=== PATIENT | female | born 1940 | race Caucasian/White ===

== ENCOUNTER 2017-07-04 23:37 | Observation (INO) | payer MEDICARE, BC ==
[~2017-07-04] VITALS: Ht 165.1 cm; Wt 65.7 kg
--- NOTE | ~2017-07-04 | HP ---
Unit #: [id number] #: [id number] Patient: EUNICE CARABALLO [id number] [address] [place], [place] [address] [id number] I MR#: [id number] NAME: EUNICE CARABALLO. ROOM: 553 Age: 77 Sex: F Admission Date: 07/05/2017 : 1940 Attending Physician: Vimal Sanford M.D. Primary Care Physician: Mian Abreu Jr., M.D. HISTORY AND PHYSICAL HISTORY OF PRESENT ILLNESS This is a 77-year-old white female with a history of hypertension, hyperlipidemia, and diabetes. She had a normal stress test back in 2013 and a normal echo. She has non-Hodgkin's lymphoma that is in remission since 2014. She sees Dr. Terrazas. She is a nonsmoker. She presented to the emergency room after she had an episode last evening where she felt her heart racing and palpating and had substernal chest pressure, lightheadedness, and shortness of breath. She has a blood pressure machine at home and she took and the readings were 200/100. She said that with her symptoms and the blood pressure high, she came to the emergency room for further evaluation. She denies that the discomfort radiated up into her neck, jaw, or bilateral shoulders, arms, or elbows. She did say she has been having spells of dizziness when she gets up and ambulates. She is very active for her age. She does all of her housework and even mows her grass with a push mower. She denies any near syncope or syncopal episodes. She has not had any recent cough, fever, or chills. Denies any nausea, vomiting, or abdominal pain. She describes the pressure in her chest as just being a heavy pushing pressure, and she has not had that recently. In the emergency room, patient's blood pressure was found to be 154/96, heart rate was 105, respirations 18, temperature 97.5, and O2 saturation was 99% on room air. Her chest x-ray did not show anything acute. EKG showed sinus rhythm. She had some nonspecific changes in her inferior leads. Her cardiac enzymes have remained negative. Her potassium was down to 3.3 and that was supplemented with 40 mEq of KCl. Creatinine 0.7. Patient was given an aspirin, in addition to the supplemental potassium and a dose of IV Ativan. She will be admitted for further evaluation and management. PAST MEDICAL HISTORY 1. In 2013, a 2D echo, LVEF of greater than 55%, trace myocardial infarction and tricuspid regurgitation. 2. In 2013, Lexiscan Cardiolite stress test, no ischemia, normal wall motion, EF of 65%. 3. Hypertension. 4. Diabetes mellitus type 2. 5. Hyperlipidemia. 6. Non-Hodgkin's lymphoma in remission since 2014, sees Dr. Terrazas. 7. Nonsmoker. PAST SURGICAL HISTORY 1. Thyroid nodule removed but was benign. 2. Breast biopsy but benign. Unit #: [id number] #: [id number] Patient: EUNICE CARABALLO HOME MEDICATIONS 1. Glucophage 500 mg p.o. twice daily. 2. Lisinopril 40 mg p.o. daily. 3. Norvasc 10 mg p.o. daily. ALLERGIES No known drug allergies. SOCIAL HISTORY Patient lives with her spouse. She is very active for her age. She does all of her chores in the home and also mows the grass with a push mower. She has been a lifelong nonsmoker. No alcohol or illicit drug abuse. FAMILY HISTORY Her mother had a stroke at the age of 50 but did not until she was 83. Her father had some type of heart disease but at an older age. Her siblings are in generally well health. REVIEW OF SYSTEMS CONSTITUTIONAL: Denies fever or chills. No recent weight gain or weight loss. HEENT: Denies headache. Has occasional dizziness but no presyncope or syncope. Denies visual or hearing changes. NECK: No lymphadenopathy or thyromegaly. No difficulty swallowing. CARDIOVASCULAR: Chest pressure present. Palpitations present. CHEST: Denies paroxysmal nocturnal dyspnea or orthopnea. GASTROINTESTINAL: Denies nausea, vomiting, or diarrhea. Denies abdominal pain. NEUROLOGICAL: No focal weakness. PHYSICAL EXAMINATION GENERAL: On exam, Mrs. Caraballo is a 77-year-old white female in no acute respiratory distress. VITAL SIGNS: Blood pressure currently 156/73, heart rate 74, respirations 18, temperature 98, O2 saturations 95% on room air. NECK: Trachea midline. No thyromegaly or lymphadenopathy. Normal carotid upstrokes. No jugular venous distention. HEART: S1 and S2, regular rate and rhythm. No clicks, murmurs, or rubs. LUNGS: Bilaterally clear throughout. No wheezes, rales, or rhonchi. ABDOMEN: Obese, soft, nontender. EXTREMITIES: Pedal pulses are palpable. With 1+ pedal edema. DIAGNOSTIC STUDIES LABORATORY: Glucose is 256, BUN 14, creatinine 0.7, eGFR is 83, sodium 140, potassium 3.3, chloride 106, CO2 is 27, calcium is 9, total protein 7.1, albumin 4.1, bilirubin total 0.2, AST 17, ALT 20, alkaline phosphatase is 52. BNP is 53. TSH is 2.42. WBC 9.8, hemoglobin 13.3, hematocrit 40.5, and platelets 243,000. Initial cardiac enzymes: CK-MB is 1.6 and troponin less than 0.05, CK-MB is 1.2 and troponin less than 0.05, and this morning her troponin is less than 0.03. Urinalysis shows trace leukocyte esterase, 250 glucose, 0.2 urobilinogen, otherwise unremarkable. IMAGING: Chest x-ray, preliminary report, does not show anything acute. CARDIOLOGY: EKG shows normal sinus rhythm with ventricular rate 69 beats per minute, left ventricular hypertrophy, early repolarization, Unit #: [id number] #: [id number] Patient: EUNICE CARABALLO nonspecific ST and T wave abnormalities in inferior leads. IMPRESSION 1. Chest pain, questionable etiology. 2. Palpitations. 3. Dizziness. 4. Hypertension. 5. Diabetes mellitus. 6. Hyperlipidemia. 7. History of non-Hodgkin's lymphoma that is in remission. 8. Nonsmoker. PLAN 1. So far, cardiac enzymes are negative. EKG shows some nonspecific changes. Her symptoms may be more palpitations causing her symptoms, so she is on telemetry. So far, there are no arrhythmias noted. Patient has been started on a low-dose beta mary. Will continue to monitor. Decrease down her dose of lisinopril to avoid any hypotension. 2. Do orthostatic vital signs to check for any orthostasis. 3. Her TSH is normal. 4. Obtain a fasting lipid profile and evaluate. 5. Patient states she was intolerant of statins in the past. 6. Obtain a 2D echo to reevaluate her LV function and valves. 7. Will schedule for a stress test in the morning if her cardiac enzymes remain negative to further evaluate for ischemic heart disease. 8. SCDs for DVT prophylaxis while in bed. 9. Continue on aspirin along with a beta mary and nitrate. 10. Further recommendations pending per Dr. Garcia. Dictated by Zuri Becerril A.P.R.N. for John Garcia M.D. LEO/carline TD: 07/05/2017 16:20 JOB #: [id number] HISTORY AND PHYSICAL Page 1 of 1 X Zuri Becerril APRN X HISTORY AND PHYSICAL
--- NOTE | ~2017-07-04 | EKG ---
PATIENT: EUNICE CARABALLO UNIT #: [id number] Ventricular Rate: 68 BPM Atrial Rate: 68 BPM P-R Interval: 148 ms QRS Duration: 78 ms Q-T Interval: 422 ms QTC Calculation(Bezet): 448 ms P [place]: 25 degrees Calculated R [place]: 14 degrees Calculated T [place]: 32 degrees Diagnosis Line: Normal sinus rhythm Diagnosis Line: Normal ECG Diagnosis Line: When compared with ECG of 05-JUL-2017 16:30, Diagnosis Line: (unconfirmed) Diagnosis Line: No significant change was found Diagnosis Line: Confirmed by CRISTI ESTRELLA MD ([id number]) on 07/08/2017 Diagnosis Line: 4:47:28 PM INTERPRETING MD: DELORES MONTEIRO
--- NOTE | ~2017-07-04 | ST ---
Unit #: [id number] #: [id number] Patient: EUNICE CARABALLO [id number] [address] [address] [id number] I MR#: [id number] NAME: EUNICE CARABALLO. : 1940 SEX: F STUDY DATE/TIME: UNIT: C5B ROOM: 553 STUDY DESCRIPTION: Stress Test Attending Physician: Vimal Sanford M.D. Primary Care Physician: Mina Abreu Jr., M.D. CARDIOLOGY REPORT EXAM Lexiscan Cardiolite Stress Test DESCRIPTION Baseline EKG - normal sinus rhythm with ventricular rate 79 beats per minute, left atrial abnormality, nondiagnostic Q waves in inferior leads, slow R wave progression. Lexiscan is a four minute test with Lexiscan being injected within the first minute followed by Cardiolite. EKG during the test showed some T wave inversion in inferior leads of frequent premature ventricular complex during stress and recovery portion. Patient had no complaints of chest pain, palpitations or dizziness. Had increased shortness of breath and fatigueness which resolved in recovery phase. Maximum heart rate response was 115 beats per minute with a maximum blood pressure response of 175/85 mmHg. Cardiolite was injected after Lexiscan within the first minute of the test. Radionuclide test pending. Please correlate with nuclear images. Dictated by... Zuri Becerril A.P.R.N. for Jerad Juan/erna TD: 07/06/2017 12:22 JOB #: [id number] Unit #: [id number] #: [id number] Patient: EUNICE CARABALLO CARDIOLOGY REPORT Page 1 of 1 X Zuri Becerril APRN CARDIOLOGY REPORT
--- NOTE | ~2017-07-04 | CR72 ---
[facility] A Service of [facility] RADIOLOGY TEXT RESULTS PATIENT: EUNICE CARABALLO LOCATION: [place] [address] : [birth year] UNIT #: [id number] AGE: [address]: Vimal Sanford MD SEX: F ORDER DR: [id number] [facility] [address] [place], [place] [address] [id number] I MR#: [id number] Acc #: [id number] NAME: EUNICE CARABALLO : 1940 SEX: F STUDY DATE/TIME: 07/05/2017 1:11 UNIT: [facility] ROOM: [facility] STUDY DESCRIPTION: CR Chest Single View Portable Attending Physician: Vimal Sanford M.D. Ordering Physician: Iam Howard M.D. Primary Care Physician: Mina Abreu Jr., M.D. MEDICAL IMAGING REPORT This report is preliminary unless electronic signature is present EXAM Portable chest INDICATIONS Heart palpitations today PROCEDURE Frontal view chest COMPARISON 09/14/2014 FINDINGS Moderate cardiomegaly. No dense consolidation. No pleural fluid or pneumothorax. IMPRESSION Moderate cardiomegaly. No active process. Dictated by... Raymundo Sahu M.D. THIS IS AN ELECTRONICALLY VERIFIED REPORT Raymundo Sahu M.D. at 07/06/2017 10:04 PM EED/to TD: 07/05/2017 13:56 JOB #: [id number] MEDICAL IMAGING REPORT Page 1 of 1 COPY
--- NOTE | ~2017-07-04 | EKG ---
PATIENT: EUNICE CARABALLO UNIT #: [id number] Ventricular Rate: 62 BPM Atrial Rate: 62 BPM P-R Interval: 168 ms QRS Duration: 78 ms Q-T Interval: 438 ms QTC Calculation(Bezet): 444 ms P [place]: 33 degrees Calculated R [place]: 1 degrees Calculated T [place]: 28 degrees Diagnosis Line: Normal sinus rhythm Diagnosis Line: Possible Inferior infarct , age undetermined Diagnosis Line: Abnormal ECG Diagnosis Line: When compared with ECG of 05-JUL-2017 07:17, Diagnosis Line: (unconfirmed) Diagnosis Line: No significant change was found Diagnosis Line: Confirmed by ELVA MEJIA MD ([id number]) on 07/06/2017 Diagnosis Line: 2:03:22 PM INTERPRETING MD: JACKIE MONTEIRO
--- NOTE | ~2017-07-04 | EKG ---
PATIENT: EUNICE CARABALLO UNIT #: [id number] Ventricular Rate: 78 BPM Atrial Rate: 78 BPM P-R Interval: 162 ms QRS Duration: 80 ms Q-T Interval: 394 ms QTC Calculation(Bezet): 449 ms P [place]: 44 degrees Calculated R [place]: 47 degrees Calculated T [place]: 46 degrees Diagnosis Line: Sinus rhythm with occasional Premature ventricular Diagnosis Line: complexes Diagnosis Line: Nonspecific T wave abnormality Diagnosis Line: Abnormal ECG Diagnosis Line: When compared with ECG of 05-JUL-2017 00:16, Diagnosis Line: (unconfirmed) Diagnosis Line: QRS axis Shifted left Diagnosis Line: Confirmed by ELVA MEJIA MD ([id number]) on 07/06/2017 Diagnosis Line: 2:00:56 PM INTERPRETING MD: JACKIE MONTEIRO
--- NOTE | ~2017-07-04 | TH ---
Unit #: [id number] #: [id number] Patient: EUNICE CARABALLO 113[address] [facility]. [address] [address] [id number] I MR#: [id number] NAME: EUNICE CARABALLO. : 1940 SEX: F STUDY DATE/TIME: UNIT: C5B ROOM: 553 STUDY DESCRIPTION: Nuclear Study Attending Physician: Vimal Sanford M.D. Primary Care Physician: Mina Abreu Jr., M.D. CARDIOLOGY REPORT EXAM Lexiscan Cardiolite Stress Test - Nuclear Portion PROCEDURE Using technetium 99m labeled Cardiolite, rest and stress SPECT images were obtained. Multiple SPECT images were obtained in various views including horizontal and vertical long axis and short axis views of the left ventricle. Images were obtained by gated SPECT method. Patient was administered 11.22 mCi of Cardiolite at rest. Patient was administered 33.4 mCi of Cardiolite after Lexiscan infusion was completed. On the stress images there is normal perfusion noted. The rest images show normal perfusion. Comparing rest and stress images, there is no stress-induced ischemia noted. The left ventricular ejection fraction is calculated to be 85%. There is no focal wall motion abnormality seen. CONCLUSION 1. No stress-induced ischemia noted. 2. The left ventricular ejection fraction is calculated to be 85%. 3. There is no focal wall motion abnormality seen. 4. The left ventricular size is small. 5. Normal Lexiscan Cardiolite stress test. Dictated by... Jerad Juan TD: 07/06/2017 13:26 JOB #: [id number] Unit #: [id number] #: [id number] Patient: EUNICE CARABALLO CARDIOLOGY REPORT Page 1 of 1 X Faina Ceja MD <ELECTRONICALLY SIGNED> 07/23/17 1524 CARDIOLOGY REPORT
--- NOTE | ~2017-07-04 | EKG ---
PATIENT: EUNICE CARABALLO UNIT #: [id number] Ventricular Rate: 69 BPM Atrial Rate: 69 BPM P-R Interval: 148 ms QRS Duration: 80 ms Q-T Interval: 402 ms QTC Calculation(Bezet): 430 ms P [place]: 25 degrees Calculated R [place]: 39 degrees Calculated T [place]: 36 degrees Diagnosis Line: Normal sinus rhythm Diagnosis Line: Voltage criteria for left ventricular hypertrophy Diagnosis Line: Otherwise normal ECG Diagnosis Line: When compared with ECG of 05-JUL-2017 00:17, Diagnosis Line: (unconfirmed) Diagnosis Line: Premature ventricular complexes are no longer Diagnosis Line: Present Diagnosis Line: Nonspecific T wave abnormality, improved in Diagnosis Line: Anterior leads Diagnosis Line: Confirmed by ELVA MEJIA MD ([id number]) on 07/06/2017 Diagnosis Line: 2:01:33 PM INTERPRETING MD: JACKIE MONTEIRO
[~2017-07-04 23:37] MED LIST: HYDROCHLOROTH12.5 M1 PO; LISINOPRIL; METFORMIN PO; MEVACOR; NORVASC; PEPCID
[2017-07-05 00:19] LABS: BASOPHIL# 0.1 X10e3 (0-0.3); BASOPHIL% 1.3 % (0-2.5); DIFF IND NO; EOSINOPHIL# 0.2 X10e3 (0-0.7); EOSINOPHIL% 2.1 % (0.0-7.0); HEMATOCRIT 40.5 % (35.0-45.0); HEMOGLOBIN 13.3 gm/dL (12.0-16.0); LYMPHOCYTE# 1.5 X10e3 (1.0-3.5); LYMPHOCYTE% 15.4 % (17.0-45.0); MEAN CELL VOLUME 84.4 FL (83-96); MEAN CORPUSCULAR HEMOGLOBIN 27.8 PG (28-34); MEAN PLATELET VOLUME 8.1 FL (6.5-11.5); MONOCYTE# 0.9 X10e3 (0-1.0); MONOCYTE% 9.3 % (3.0-12.0); NEUTROPHIL# 7.1 X10e3 (1.5-7.1); NEUTROPHIL% 71.9 % (40-75); PLATELET COUNT 243 X10e3 (140-420); RED CELL DISTRIBUTION WIDTH 14.3 % (11.0-15.5); WHITE BLOOD COUNT 9.8 X10e3 (4.0-10.5)
[2017-07-05 00:25] LABS: POC - CKMB 1.6 ng/mL (0.0-7.9); POC - TROPONIN <0.05 ng/mL (<=0.05)
[2017-07-05 00:45] LABS: ALBUMIN SERUM 4.1 g/dL (3.5-5.0); BILIRUBIN, DIRECT 0.1 mg/dL (0.0-0.2); BILIRUBIN,INDIRECT 0.1 mg/dL (0.0-0.9); BILIRUBIN,TOTAL 0.2 mg/dL (0.2-2.0); CREATININE SERUM 0.7 mg/dL (0.6-1.4); POTASSIUM 3.3 mmol/L (3.5-5.1); PROTEIN TOTAL SERUM 7.1 g/dL (6.0-8.3)
[2017-07-05 00:55] LABS: URINE SOURCE CLEAN CATCH
[2017-07-05 00:59] LABS: URINE APPEARANCE CLEAR; URINE BILIRUBIN NEG (NEG); URINE BLOOD TRACE (NEG); URINE COLOR YELLOW; URINE GLUCOSE 250 MG/DL (NEG); URINE KETONE NEG (NEG); URINE LEUKOCYTE ESTERASE TRACE (NEG); URINE NITRATE NEG (NEG); URINE PROTEIN NEG (NEG); URINE SPECIFIC GRAVITY 1.005 (1.003-1.035); URINE UROBILINOGEN 0.2 MG/DL (NEG)
[2017-07-05 01:02] LABS: CULTURE INDICATED? NO; U HYALINE CASTS AUWI 0-2 /[LPF]; URBCS1 AUWI 0-2 /[HPF] (0-2); URINE BACTERIA AUWI NEG (NEGATIVE); URINE SQUAMOUS EPITHELIAL CELL NONE SEEN /[HPF]
[2017-07-05 02:02] LABS: POC - CKMB 1.2 ng/mL (0.0-7.9); POC - TROPONIN <0.05 ng/mL (<=0.05)
[2017-07-06 05:47] LABS: HEMATOCRIT 40.6 % (35.0-45.0); HEMOGLOBIN 13.5 gm/dL (12.0-16.0); MEAN CELL VOLUME 83.5 FL (83-96); MEAN CORPUSCULAR HEMOGLOBIN 27.7 PG (28-34); MEAN CORPUSCULAR HGB CONC 33.1 g/dL (30-36); MEAN PLATELET VOLUME 8.2 FL (6.5-11.5); RED BLOOD COUNT 4.86 X10e (3.90-5.30); RED CELL DISTRIBUTION WIDTH 14.6 % (11.0-15.5); WHITE BLOOD COUNT 9.3 X10e3 (4.0-10.5)
[2017-07-06 07:02] LABS: BUN/CREATININE RATIO 27.5; CALCIUM SERUM 9.6 mg/dL (8.4-10.2); CREATININE SERUM 0.8 mg/dL (0.6-1.4); GLOM FILT RATE Estimated 70.7 mL/min (>60)
[2017-07-06] MEDS ORDERED: NORVASC10 MG PO (14:08)
[2017-07-06] MEDS ORDERED: METOPROLOL TAR25 MG PO (14:09)
[2017-07-06] MEDS ORDERED: ASPIRIN81 MG PO (14:09)
[2017-07-06] MEDS ORDERED: ALDACTONE25 MG PO (14:10)
[2017-07-06] MEDS ORDERED: LISINOPRIL10 MG PO (14:12)
== END 2017-07-06 15:31 | disposition home or self-care (01) ==
LOC: CED 23:37 → CEDOF 07-05 02:10 → CED 07-05 02:20 → CEDOF 07-05 07:45 → C5B 07-05 07:45
PROVIDERS: Emergency Medicine; Nurse Practitioner
DX: R07.9 Chest pain, unspecified (principal); R00.2 Palpitations; R42 Dizziness and giddiness; I10 Essential (primary) hypertension; E11.9 Type 2 diabetes mellitus without complications; E78.5 Hyperlipidemia, unspecified; Z85.72 Personal history of non-Hodgkin lymphomas; Z79.84 Long term (current) use of oral hypoglycemic drugs; Z79.899 Other long term (current) drug therapy; Z98.890 Other specified postprocedural states
CPT/HCPCS: 36415; 71010; 78452; 80048; 80061; 80076; 81003; 82553; 82947; 83735; 83880; 84443; 84484; 85025; 85027; 93005; 93017; 93306; 96374; 96375; 96376; 99285; A9500; G0378; J1815; J1940; J2060; J2785